=== PATIENT | male | born 1995 | race African-American/Black ===

== ENCOUNTER 2018-09-01 12:38 | Outpatient (CLI) | payer BC, OTHER ==
[2018-09-01 13:33] LABS: Anion Gap 13 mmol/L (10-20); BUN (Urea Nitrogen) 9 mg/dL (8.9-20.6); Calc. Creatinine Clearance 0 mL/min (70-130); Calcium 9.3 mg/dL (7.8-10.44); Carbon Dioxide 25 mmol/L (22-29); Chloride 103 mmol/L (98-107); Estimated GFR-MDRD Greater than 90; Glucose 151 mg/dL (70-105); Potassium 3.7 mmol/L (3.5-5.1); Sodium 137 mmol/L (136-145)
--- NOTE | 2018-09-02 07:30 | ULT ---
RENAL AND BLADDER ULTRASOUND: History: Neuropathic bladder. Comparison: 04-13-18 Technique: Sagittal and transverse imaging of the kidneys performed. Imaging of the bladder is perfor med with longitudinal and transverse imaging. FINDINGS: Bilaterally, the kidneys have a normal cortical echotexture. Bilaterally there is no hydronephrosis. Right kidney measures 8.0 x 4.1 x 4.5 cm. Left kidney measures 8.8 x 4.5 x 4.2 cm. Bladder mucosa is unremarkable. Bilateral ureteral jets are noted. Pre void volume is 80.8 ml. Post void volume is 59.3 ml. IMPRESSION: 1. Incomplete micturition. There is still residual volume present in the post void images. 2. No evidence of hydronephrosis. POS: [facility]
== END 2018-09-01 12:39 | disposition home or self-care (01) ==
LOC: ULT 12:38
PROVIDERS: ATTEND Urology
DX: N31.1 Reflex neuropathic bladder, not elsewhere classified (principal); N32.81 Overactive bladder; R39.14 Feeling of incomplete bladder emptying; Z87.442 Personal history of urinary calculi
CPT/HCPCS: 36415; 76770; 76856; 80048